=== PATIENT | male | born 1980 | race Caucasian/White ===

== ENCOUNTER 2019-03-16 16:06 | Emergency (ER) | payer SELFPAY ==
[~2019-03-16] VITALS: Ht 182.9 cm; Wt 110.4 kg
[2019-03-16] MEDS ORDERED: MUPIROCIN 2 % TOPICAL CREAM 30GM TUBE. TP ONE (16:45)
[2019-03-16] MEDS ORDERED: KETOROLAC 30 MG/ML VIAL. IM ONE (16:45)
[2019-03-16] MEDS ORDERED: LIDOCAINE 2%/EPI 1:100,000 20 ML VIAL. IJ ONE (17:00)
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
[2019-03-16] MEDS ORDERED: DIPHTH,PERTUSS(ACELL),TET TOX 0.5 ML DISP.SYRIN. VAX IM ONE (17:15)
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
[2019-03-16 18:30] VITALS: BP 202/96
[2019-03-16] MEDS ORDERED: MUPI1OIN6 TP (18:41)
[2019-03-16] MEDS ORDERED: ORPH100T PO (18:41)
[2019-03-16] MEDS ORDERED: HYDR-3164 PO (18:41)
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
== END 2019-03-16 19:08 | disposition home or self-care (01) ==
LOC: ER 16:06
DX: S06.0X1A Concussion with loss of consciousness of 30 minutes or less, initial encounter (principal); S01.81XA Laceration without foreign body of other part of head, initial encounter; S20.212A Contusion of left front wall of thorax, initial encounter; V23.4XXA Motorcycle driver injured in collision with car, pick-up truck or van in traffic accident, initial encounter; Y93.89 Activity, other specified; Y92.410 Unspecified street and highway as the place of occurrence of the external cause; Y99.8 Other external cause status
CPT/HCPCS: 12013; 70450; 71250; 90471; 90715; 96372; 99284; J1885; J3490